=== PATIENT | female | born 1980 | race Caucasian/White ===

== ENCOUNTER 2017-12-26 12:20 | Outpatient (CLI) | payer BC ==
[~2017-12-26] VITALS: Ht 167.6 cm; Wt 87.1 kg
[2017-12-26 12:33] VITALS: BP 124/81
[2017-12-26] MEDS ORDERED: SERT25TA5 PO (12:39)
[2017-12-26 13:14] LABS: BASOPHILS % (AUTO) 0 % (0-10); EOSINOPHILS # (AUTO) 0.1 10^3/uL (0.0-0.3); EOSINOPHILS % (AUTO) 2 % (0-10); HEMATOCRIT 42 % (35-52); HEMOGLOBIN 14.4 G/DL (11.5-16.0); LYMPHOCYTES # (AUTO) 2.3 X 10^3 (1.0-4.0); LYMPHOCYTES % (AUTO) 31 % (12-44); MEAN CORPUSCULAR HEMOGLOBIN 32 PG (25-34); MEAN CORPUSCULAR HGB CONC 34 G/DL (32-36); MEAN CORPUSCULAR VOLUME 94 FL (80-99); MEAN PLATELET VOLUME 10.1 FL (7.4-10.4); MONOCYTES # (AUTO) 0.5 X 10^3 (0.0-1.0); MONOCYTES % (AUTO) 7 % (0-12); NEUTROPHILS # (AUTO) 4.7 X 10^3 (1.8-7.8); NEUTROPHILS % (AUTO) 61 % (42-75); PLATELET COUNT 235 10^3/uL (130-400); RED BLOOD COUNT 4.51 10^6/uL (4.35-5.85); RED CELL DISTRIBUTION WIDTH 13.3 % (10.0-14.5); WHITE BLOOD COUNT 7.7 10^3/uL (4.3-11.0)
== END 2017-12-26 13:00 | disposition home or self-care (01) ==
LOC: PREOP 12:20
PROVIDERS: ATTEND Obstetrics & Gynecology
DX: Z01.812 Encounter for preprocedural laboratory examination (principal); Z11.2 Encounter for screening for other bacterial diseases; N39.3 Stress incontinence (female) (male); N81.4 Uterovaginal prolapse, unspecified; N93.8 Other specified abnormal uterine and vaginal bleeding; D64.9 Anemia, unspecified
CPT/HCPCS: 36415; 85025; 86850; 86900; 86901; 87081

== ENCOUNTER 2018-01-06 10:13 | Inpatient (IN) | payer BC ==
[~2018-01-06] VITALS: Ht 167.6 cm; Wt 87.1 kg
[~2018-01-06 10:13] MED LIST: CIPR-225 PO; DOCU-143 PO; IBUP-1780 PO; OXYC-465 PO; SERT25TA5 PO
[2018-01-06] MEDS ORDERED: HYDROmorphone 2 MG/ML VIAL (DILAUDID) ONE (10:33)
[2018-01-06] MEDS ORDERED: HYDROmorphone 2 MG/ML VIAL (DILAUDID) IV STA ×4 (10:33→13:48)
[2018-01-06] MEDS ORDERED: NS IV 1000 ML 1,000 ML IV ONE (10:33)
[2018-01-06] MEDS ORDERED: NS IV 1000 ML 1,000 ML ONE (10:34)
[2018-01-06] MEDS ORDERED: ONDANSETRON 4 MG/2 ML (SDV) Z0FRAN ONE (10:44)
[2018-01-06 10:55] LABS: BASOPHILS % (AUTO) 0 % (0-10); EOSINOPHILS # (AUTO) 0.1 10^3/uL (0.0-0.3); EOSINOPHILS % (AUTO) 1 % (0-10); HEMATOCRIT 34 % (35-52); HEMOGLOBIN 11.7 G/DL (11.5-16.0); LYMPHOCYTES # (AUTO) 1.8 X 10^3 (1.0-4.0); LYMPHOCYTES % (AUTO) 16 % (12-44); MEAN CORPUSCULAR HEMOGLOBIN 33 PG (25-34); MEAN CORPUSCULAR HGB CONC 34 G/DL (32-36); MEAN CORPUSCULAR VOLUME 95 FL (80-99); MEAN PLATELET VOLUME 9.7 FL (7.4-10.4); MONOCYTES # (AUTO) 0.8 X 10^3 (0.0-1.0); MONOCYTES % (AUTO) 7 % (0-12); NEUTROPHILS # (AUTO) 8.6 X 10^3 (1.8-7.8); NEUTROPHILS % (AUTO) 76 % (42-75); PLATELET COUNT 185 10^3/uL (130-400); RED CELL DISTRIBUTION WIDTH 12.7 % (10.0-14.5); WHITE BLOOD COUNT 11.3 10^3/uL (4.3-11.0)
[2018-01-06] MEDS ORDERED: ONDANSETRON 4 MG/2 ML (SDV) Z0FRAN IVP ONE (11:00)
--- NOTE | 2018-01-06 11:09 | ED Abdominal Pain ---
General Chief Complaint: Rect Problems Stated Complaint: POST OP PAIN/UNABLE TO GO TO RESTROOM Nursing Triage Note: PT REPORTS RECTAL PAIN, ABDOMINAL PRESSURE/PAIN AND CONSTIPATION SINCE HAVING PARTIAL HYST, POSTERIOR/ANTERIOR REPAIR, AND BLADDER SLING Sepsis Screen: No Definite Risk Source of Information: Patient Exam Limitations: No Limitations History of Present Illness Date Seen by Provider: Jan 06, 2018 Time Seen by Provider: 10:53 Initial Comments Here with report of significant rectal pain and pressure. Feels like that she can't have a bowel movement. Had hysterectomy 3 days ago robot-assisted as well as bladder repair. Has not had a significant bowel movement since. States it hurts to even pass gas. States that she has significant amount of pressure rectal now and pain in the abdomen. No dysuria that everything hurts down low. Her pain medicines are not working. Surgery with Dr. Liriano. He is currently out of town in his office requested that she come here for evaluation. Timing/Duration: 2-3 Days Severity/Quality: Moderate, Severe, Aching Location: Suprapubic, Other (rectal) Radiation: RLQ, LLQ Activities at Onset: None Modifying Factors: Worsens With Defecating, Worsens With Movement, Worsens With Urinating Associated Symptoms: Back Pain; No Chest Pain, No Fever/Chills, No Nausea/ Vomiting; Swelling/Mass in Abdomen; No Weakness Allergies and Home Medications Allergies Coded Allergies: No Known Drug Allergies (Unverified , 12/26/17) Home Medications Amoxicillin/Potassium Clav 1 Each Tablet, 875 MG PO BID WITH MEALS Prescribed by: PAM CASTANEDA on 01/07/18 1011 Bisacodyl 10 Mg Supp.rect, 10 MG NV Q12H PRN for Constipation Prescribed by: PAM CASTANEDA on 01/07/18 1011 Ciprofloxacin HCl 500 Mg Tablet, 500 MG PO BID Prescribed by: KYLE HAMMOND on 01/05/18 1933 Docusate Sodium 100 Mg Capsule, 100 MG PO BID Prescribed by: NIKOS HERNANDEZ on 01/03/18 1244 Ibuprofen 800 Mg Tablet, 800 MG PO Q6H PRN for PAIN Prescribed by: NIKOS HERNANDEZ on 01/03/18 1244 Magnesium Hydroxide 400 Mg/5 Ml Oral.susp, 30 ML PO TID PRN for CONSTIPATION- 7TH LINE Prescribed by: PAM CASTAENDA on 01/07/18 1011 Metoclopramide HCl 10 Mg Tablet, 10 MG PO ACHS Prescribed by: PAM CASTANEDA on 01/07/18 1011 Metronidazole 500 Mg Tablet, 500 MG PO TID Prescribed by: PAM CASTANEDA on 01/07/18 1011 Oxycodone HCl/Acetaminophen 1 Each Tablet, 1 TAB PO Q4H PRN for PAIN Prescribed by: NIKOS HERNANDEZ on 01/03/18 1244 Potassium Chloride 20 Meq Tablet.er, 20 MEQ PO DAILY Prescribed by: PAM CASTANEDA on 01/07/18 1018 Sertraline HCl 25 Mg Tablet, 25 MG PO DAILY, (Reported) Patient Home Medication List Home Medication List Reviewed: Yes Review of Systems Review of Systems Constitutional: see HPI; No chills, No fever EENTM: No Symptoms Reported Respiratory: No Symptoms Reported Cardiovascular: No Symptoms Reported Gastrointestinal: Abdominal Pain, Constipated, Nausea; Denies Vomiting Genitourinary: No Symptoms Reported Musculoskeletal: no symptoms reported Skin: no symptoms reported Psychiatric/Neurological: No Symptoms Reported All Other Systems Reviewed Negative Unless Noted: Yes Past Mmrgazg-Rfsnjz-Mswwsh Hx Past Med/Social Hx: Reviewed Nursing Past Med/Soc Hx Patient Social History Alcohol Use: Occasionally Uses Number of Drinks Today: AA Alcohol Beverage of Choice: Beer Recreational Drug Use: No Smoking Status: Current Everyday Smoker Type Used: Cigarettes Recent Foreign Travel: No Contact w/Someone Who Travel: No Recent Infectious Disease Expo: No Recent Hopitalizations: No Physical Abuse: No Sexual Abuse: No Mistreated: No Fear: No Seasonal Allergies Seasonal Allergies: No Past Medical History Surgeries: Yes (RECTAL REPAIR) Appendectomy, Section, Hysterectomy Respiratory: No Cardiac: No Neurological: Yes (hx of seizures when she is extemely tired, last seizure 3-4 years ago) Reproductive Disorders: Yes Female Reproductive Disorders: Endometriosis, Ovarian Cyst Sexually Transmitted Disease: No HIV/AIDS: No Genitourinary: Yes (MARAH) Gastrointestinal: No Musculoskeletal: No Endocrine: No HEENT: No Cancer: No Psychosocial: Yes Depression Nursing Suicide Risk Score: 0 Integumentary: No Blood Disorders: No Family Medical History Reviewed Nursing Family Hx Alcoholism G8 BROTHER Drug abuse G8 BROTHER FH: spina bifida G8 BROTHER Hypertension 19 MOTHER Kidney disease G8 BROTHER Seizure disorder G8 BROTHER Physical Exam Vital Signs Vital Signs - First Documented 01/06/18 10:53 Temp 98.2 Pulse 97 Resp 16 B/P (MAP) 90/71 (77) Pulse Ox 98 Capillary Refill : Less Than 3 Seconds Height/Weight/BMI Height: 5'6.00" Weight: 192lbs. 0.0oz. 87.391885dt; 31.0 BMI Method:Stated General Appearance: WD/WN, no apparent distress HEENT: PERRL/EOMI, pharynx normal Neck: full range of motion, supple Respiratory: lungs clear, normal breath sounds Cardiovascular: no murmur, tachycardia Peripheral Pulses: 2+ Dorsalis Pedis (R), 2+ Left Dors-Pedis (L), 2+ Radial Pulses (R), 2+ Radial Pulses (L) Gastrointestinal: guarding, tenderness, other (abdominal fullness noted with significant tenderness in the lower abdomen and guarding to the lower abdomen. Soft in the upper abdomen) Extremities: non-tender, normal inspection Back: normal inspection, no CVA tenderness, no vertebral tenderness Neurologic/Psychiatric: alert, oriented x 3 Skin: normal color, warm/dry Focused Exam Lactate Level 01/06/18 13:36: Lactic Acid Level 0.73 Lactic Acid Level Laboratory Tests Test 01/06/18 13:36 Lactic Acid Level 0.73 MMOL/L (0.50-2.00) Progress/Results/Core Measures Results/Orders Lab Results Laboratory Tests Test 01/06/18 10:45 01/06/18 13:36 Range/Units White Blood Count 11.3 H 4.3-11.0 10^3/uL Red Blood Count 3.60 L 4.35-5.85 10^6/uL Hemoglobin 11.7 11.5-16.0 G/DL Hematocrit 34 L 35-52 % Mean Corpuscular Volume 95 80-99 FL Mean Corpuscular Hemoglobin 33 25-34 PG Mean Corpuscular Hemoglobin Concent 34 32-36 G/DL Red Cell Distribution Width 12.7 10.0-14.5 % Platelet Count 185 130-400 10^3/uL Mean Platelet Volume 9.7 7.4-10.4 FL Neutrophils (%) (Auto) 76 H 42-75 % Lymphocytes (%) (Auto) 16 12-44 % Monocytes (%) (Auto) 7 0-12 % Eosinophils (%) (Auto) 1 0-10 % Basophils (%) (Auto) 0 0-10 % Neutrophils # (Auto) 8.6 H 1.8-7.8 X 10^3 Lymphocytes # (Auto) 1.8 1.0-4.0 X 10^3 Monocytes # (Auto) 0.8 0.0-1.0 X 10^3 Eosinophils # (Auto) 0.1 0.0-0.3 10^3/uL Basophils # (Auto) 0.0 0.0-0.1 10^3/uL Sodium Level 140 135-145 MMOL/L Potassium Level 3.2 L 3.6-5.0 MMOL/L Chloride Level 108 H 98-107 MMOL/L Carbon Dioxide Level 25 21-32 MMOL/L Anion Gap 7 5-14 MMOL/L Blood Urea Nitrogen 7 7-18 MG/DL Creatinine 0.68 0.60-1.30 MG/DL Estimat Glomerular Filtration Rate > 60 BUN/Creatinine Ratio 10 Glucose Level 94 70-105 MG/DL Calcium Level 9.1 8.5-10.1 MG/DL Corrected Calcium 9.3 8.5-10.1 MG/DL Total Bilirubin 0.6 0.1-1.0 MG/DL Aspartate Amino Transf (AST/SGOT) 22 5-34 U/L Alanine Aminotransferase (ALT/SGPT) 13 0-55 U/L Alkaline Phosphatase 57 40-136 U/L Total Protein 6.7 6.4-8.2 GM/DL Albumin 3.7 3.2-4.5 GM/DL Urine Color YELLOW Urine Clarity CLEAR Urine pH 5 5-9 Urine Specific [place] 1.005 L 1.016-1.022 Urine Protein 2+ H NEGATIVE Urine Glucose (UA) NEGATIVE NEGATIVE Urine Ketones 3+ H NEGATIVE Urine Nitrite NEGATIVE NEGATIVE Urine Bilirubin NEGATIVE NEGATIVE Urine Urobilinogen 1 NORMAL MG/DL Urine Leukocyte Esterase NEGATIVE NEGATIVE Urine RBC (Auto) 1+ H NEGATIVE Urine RBC RARE /HPF Urine WBC NONE /HPF Urine Squamous Epithelial Cells NONE /HPF Urine Crystals NONE /LPF Urine Bacteria NEGATIVE /HPF Urine Casts NONE /LPF Urine Mucus NEGATIVE /LPF Urine Culture Indicated NO Lactic Acid Level 0.73 0.50-2.00 MMOL/L Micro Results Microbiology 01/06/18 Blood Culture - Preliminary, Resulted No growth My Orders Orders - ANALY,ADDIS D MD Hydromorphone Injection (Dilaudid Inject (01/06/18 10:33) Cbc With Automated Diff (01/06/18 10:33) Comprehensive Metabolic Panel (01/06/18 10:33) Saline Lock/Iv-Start (01/06/18 10:33) Ns Iv 1000 Ml (Sodium Chloride 0.9%) (01/06/18 10:33) Hydromorphone Injection (Dilaudid Inject (01/06/18 10:33) Ns Iv 1000 Ml (Sodium Chloride 0.9%) (01/06/18 10:34) Ondansetron Injection (Zofran Injectio (01/06/18 10:44) Ondansetron Injection (Zofran Injectio (01/06/18 11:00) Hydromorphone Injection (Dilaudid Inject (01/06/18 10:50) Ct Abdomen/Pelvis W (01/06/18 11:03) Ketamine Injection (Ketalar Injection) (01/06/18 11:15) Ketamine Injection (Ketalar Injection) (01/06/18 11:15) Iohexol Injection (Omnipaque 350 Mg/Ml 1 (01/06/18 11:15) Ns (Ivpb) (Sodium Chloride 0.9% Ivpb Bag (01/06/18 11:15) Hydromorphone Injection (Dilaudid Inject (01/06/18 11:53) Ketorolac Injection (Toradol Injection) (01/06/18 13:48) Hydromorphone Injection (Dilaudid Inject (01/06/18 13:48) Piperacillin Sodium/Tazobactam (Zosyn Vi (01/06/18 14:00) Medications Given in ED Vital Signs/I&O 01/06/18 10:53 Temp 98.2 Pulse 97 Resp 16 B/P (MAP) 90/71 (77) Pulse Ox 98 Blood Pressure Mean: 77 Progress Progress Note : Progress Note Seen and evaluated. Dilaudid 1 mg IV and Zofran 4 mg IV as well as labs and 1 L normal saline ordered. Pain persistent. Repeat Dilaudid 1 mg IV. This briefly helped the pain but it continues. Considered acute abdominal series but we will go ahead move directly to CT scan given the severity of her symptoms. Ketamine 15 mg IV for pain relief ordered. Monitor patient. 1210: Patient with still a considerable amount of pain. She was unable to urinate so Mas catheter placed. This did ease her pain some. Repeat Dilaudid 1 mg IV has been ordered and will be given if pain persists. Patient to go to CT scan. While in 1342: I did discuss the case with Dr. Castaneda and then Dr. Naranjo and then Dr. Castaneda again. Patient is postop with Dr. Liriano. He is out of town and Dr. Castaneda is covering. Given the CT findings and the persistent pain, patient will require admission. Given that there is concern for possible abscess, blood cultures, lactic acid and urinalysis have been ordered. We will initiate Zosyn 4.5 g IV as well as Flagyl IV. Admit for pain control with Mas catheter in place. All findings and concerns were discussed with the patient and family who agree with plan. Dilaudid 1 mg IV and Toradol 30 mg IV ordered. Zosyn 4.5 g IV ordered. Diagnostic Imaging Diagonstic Imaging: CT Plain Films/CT/US/NM/MRI: abdomen, pelvis Comments [place]IA [place], [place] NAME: [facility]ON[facility]AN [facility] REC#: [id number] PT STATUS: REG ER : 1980 PHYSICIAN: ADDIS BECKFORD MD ADMIT DATE: 01/06/18/ER Draft Date of Exam:01/06/18 CT ABDOMEN/PELVIS W PROCEDURE: CT abdomen and pelvis with contrast. TECHNIQUE: Multiple contiguous axial images were obtained through the abdomen and pelvis after administration of intravenous contrast. DATE: January 06, 2018. COMPARISON: None. INDICATION: 37-year-old female, status post hysterectomy last Saturday. Abdominal and gluteal pain. No urination or bowel movement since last Saturday. FINDINGS: The visualized portions of the lung bases are clear. The heart is not enlarged. There is no identified pericardial effusion. The liver is normal in size and contour. There is no identified liver lesion. The main, right, and left portal veins are patent. The gallbladder is unremarkable. There is no intrahepatic or extrahepatic bile duct dilation. The main pancreatic duct is not abnormally dilated. Unremarkable appearance of the pancreatic parenchyma. The spleen is normal in size. The adrenal glands are unremarkable. There is a low-attenuation right renal lesion on axial image 33 measuring 5 mm in size which is too small to characterize. The urinary collecting systems are not distended. There is no identified renal or ureteral stone. There is a Mas catheter within the urinary bladder which is underdistended. There does appear to be diffuse urinary bladder wall thickening and adjacent inflammatory stranding which potentially could reflect cystitis. There is abnormal wall thickening at the level of the mid sigmoid colon. There is a small amount of free intraperitoneal air at the level of the pelvis. There are sutures in the right lower quadrant. The appendix is not well seen. There are no secondary findings to specifically suggest acute appendicitis. There is a gas-containing fluid collection subjacent to the mid sigmoid colon on axial image 69 measuring approximately 5.7 x 2.9 cm in size. There is additional free pelvic fluid which is not particularly well marginated. There appears to be a duodenal diverticulum at the level of the second portion of duodenum. There is a small fat-containing anterior abdominal wall hernia best illustrated on axial image 43. There are subcentimeter short axis retroperitoneal lymph nodes. There is no identified lymph node within the abdomen or pelvis which specifically meets CT size criteria for adenopathy. There is no identified acute bony abnormality. There is transitional lumbosacral anatomy. If spinal intervention is to be performed in the future, recommend careful correlation with levels. IMPRESSION: CT ABDOMEN AND PELVIS. 1. Gas containing fluid collection at the level of the mid sigmoid colon measuring 5.7 x 2.9 cm in size concerning for developing abscess. Additional small volume free pelvic fluid. 2. Small volume of free intraperitoneal air at the level of the pelvis which potentially could relate to recent surgery on Saturday although perforation of a hollow viscus such as bowel is difficult to exclude. 3. Wall thickening of the urinary bladder with adjacent inflammatory stranding which potentially may reflect cystitis. Recommend correlation with urinalysis. There is a Mas catheter in place. 4. Nonspecific wall thickening of the mid sigmoid colon which may potentially reflect an infectious or inflammatory colitis. Findings called to Dr. Beckford at 1315 hrs. on January 06, 2018. Dictated on workstation # [id number] Dict: 01/06/18 1308 Trans: 01/06/18 1327 [facility] [id number] Interpreted by: KANDICE SANTAMARIA MD Electronically signed by: Departure Communication (Admissions) Time/Spoke to Admitting Phy: 13:42 Impression Primary Impression: Intra-abdominal fluid collection Additional Impression: Postoperative abdominal pain Disposition: ADMITTED INPATIENT Condition: Stable Admissions Decision to Admit Reason: Admit from ER (General) Decision to Admit/Date: Jan 06, 2018 Time/Decision to Admit Time: 13:42 Departure-Patient Inst. Referrals: JENNIFER RIOJAS MD (PCP) Primary Care Physician NIKOS LIRIANO MD (Family) Primary Care Physician Scripts Potassium Chloride (Potassium Chloride) 20 Meq Tablet.er 20 MEQ PO DAILY, #10 TAB Prov: PAM CASTANEDA DO 01/07/18 Metoclopramide HCl (Metoclopramide HCl) 10 Mg Tablet 10 MG PO ACHS, #20 TAB Prov: PAM CASTANEDA DO 01/07/18 Magnesium Hydroxide (Milk of Magnesia) 400 Mg/5 Ml Oral.susp 30 ML PO TID PRN for CONSTIPATION-7TH LINE, #100 ML Prov: PAM CASTANEDA DO 01/07/18 Bisacodyl (Bisac-Evac) 10 Mg Supp.rect 10 MG NV Q12H PRN for Constipation, #10 SUPP.RECT Prov: PAM CASTANEDA DO 01/07/18 Metronidazole (Metronidazole) 500 Mg Tablet 500 MG PO TID, #14 TAB Prov: PAM CASTANEDA DO 01/07/18 Amoxicillin/Potassium Clav (Amox Tr-K Clv 875-125 mg Tab) 1 Each Tablet 875 MG PO BID WITH MEALS, #10 TAB Prov: PAM CASTANEDA DO 01/07/18 ADDIS BECKFORD MD Jan 06, 2018 11:09
[2018-01-06 11:12] LABS: ALANINE AMINOTRANSFERASE 13 U/L (0-55); ALBUMIN 3.7 GM/DL (3.2-4.5); ALKALINE PHOSPHATASE 57 U/L (40-136); BILIRUBIN,TOTAL 0.6 MG/DL (0.1-1.0); BUN/CREATININE RATIO 10; CALCIUM 9.1 MG/DL (8.5-10.1); CARBON DIOXIDE 25 MMOL/L (21-32); CHLORIDE 108 MMOL/L (98-107); CREATININE SERUM 0.68 MG/DL (0.60-1.30); GFR ESTIMATED > 60; GLUCOSE 94 MG/DL (70-105); POTASSIUM 3.2 MMOL/L (3.6-5.0); SODIUM 140 MMOL/L (135-145); TOTAL PROTEIN 6.7 GM/DL (6.4-8.2)
[2018-01-06] MEDS ORDERED: KETAMINE HCL 100 MG/ML 5 ML VIAL IM ONE (11:15)
[2018-01-06] MEDS ORDERED: KETAMINE HCL 100 MG/ML 5 ML VIAL IV ONE (11:15)
[2018-01-06] MEDS ORDERED: NS 100 ML (IVPB) BAG IV ONE (11:15)
[2018-01-06] MEDS ORDERED: IOHEXOL 350 MG/ML 100 ML (OMNIPAQUE 350) VIAL IV ONE (11:15)
--- NOTE | 2018-01-06 13:27 | Diagnostic Imaging Report ---
PROCEDURE: CT abdomen and pelvis with contrast. TECHNIQUE: Multiple contiguous axial images were obtained through the abdomen and pelvis after administration of intravenous contrast. DATE: January 06, 2018. COMPARISON: None. INDICATION: 37-year-old female, status post hysterectomy last Saturday. Abdominal and gluteal pain. No urination or bowel movement since last Saturday. FINDINGS: The visualized portions of the lung bases are clear. The heart is not enlarged. There is no identified pericardial effusion. The liver is normal in size and contour. There is no identified liver lesion. The main, right, and left portal veins are patent. The gallbladder is unremarkable. There is no intrahepatic or extrahepatic bile duct dilation. The main pancreatic duct is not abnormally dilated. Unremarkable appearance of the pancreatic parenchyma. The spleen is normal in size. The adrenal glands are unremarkable. There is a low-attenuation right renal lesion on axial image 33 measuring 5 mm in size which is too small to characterize. The urinary collecting systems are not distended. There is no identified renal or ureteral stone. There is a Mas catheter within the urinary bladder which is underdistended. There does appear to be diffuse urinary bladder wall thickening and adjacent inflammatory stranding which potentially could reflect cystitis. There is abnormal wall thickening at the level of the mid sigmoid colon. There is a small amount of free intraperitoneal air at the level of the pelvis. There are sutures in the right lower quadrant. The appendix is not well seen. There are no secondary findings to specifically suggest acute appendicitis. There is a gas-containing fluid collection subjacent to the mid sigmoid colon on axial image 69 measuring approximately 5.7 x 2.9 cm in size. There is additional free pelvic fluid which is not particularly well marginated. There appears to be a duodenal diverticulum at the level of the second portion of duodenum. There is a small fat-containing anterior abdominal wall hernia best illustrated on axial image 43. There are subcentimeter short axis retroperitoneal lymph nodes. There is no identified lymph node within the abdomen or pelvis which specifically meets CT size criteria for adenopathy. There is no identified acute bony abnormality. There is transitional lumbosacral anatomy. If spinal intervention is to be performed in the future, recommend careful correlation with levels. IMPRESSION: CT ABDOMEN AND PELVIS. 1. Gas containing fluid collection at the level of the mid sigmoid colon measuring 5.7 x 2.9 cm in size concerning for developing abscess. Additional small volume free pelvic fluid. 2. Small volume of free intraperitoneal air at the level of the pelvis which potentially could relate to recent surgery on Saturday although perforation of a hollow viscus such as bowel is difficult to exclude. 3. Wall thickening of the urinary bladder with adjacent inflammatory stranding which potentially may reflect cystitis. Recommend correlation with urinalysis. There is a Mas catheter in place. 4. Nonspecific wall thickening of the mid sigmoid colon which may potentially reflect an infectious or inflammatory colitis. Findings called to Dr. Dickey at 1315 hrs. on January 06, 2018. Dictated by: Dictated on workstation # [id number]
[2018-01-06] MEDS ORDERED: KETOROLAC 30 MG/ML VIAL IVP STA (13:48)
[2018-01-06 14:00] LABS: BILIRUBIN,URINE NEGATIVE (NEGATIVE); CLARITY,URINE CLEAR; COLOR,URINE YELLOW; GLUCOSE, URINE (UA) NEGATIVE (NEGATIVE); KETONES,URINE 3+ (NEGATIVE); LEUKOCYTE ESTERASE ,URINE NEGATIVE (NEGATIVE); NITRITE,URINE NEGATIVE (NEGATIVE); PH,URINE 5 (5-9); PROTEIN,URINE 2+ (NEGATIVE); UROBILINOGEN,URINE 1 MG/DL (NORMAL)
[2018-01-06] MEDS ORDERED: PIPERACILLIN SODIUM/TAZOBACTAM 4.5 GM in D5W 100 ML IVPB 100 ML IV ONE (14:00)
[2018-01-06] MEDS ORDERED: IBUPROFEN 600 MG (MOTRIN) TAB PO SCH (14:00)
[2018-01-06 14:09] LABS: BACTERIA,URINE NEGATIVE /HPF; RBC,URINE RARE /HPF
[2018-01-06 15:18] VITALS: BP 117/81
[2018-01-06] MEDS ORDERED: HYDROmorphone 2 MG/ML VIAL (DILAUDID) IV PRN (15:45)
[2018-01-06] MEDS: metroNIDAZOLE 500MG/100ML IVPB 100 ML IV SCH ×2 (16:02→23:00)
[2018-01-06] MEDS: NS IV 1000 ML 1,000 ML IV SCH (16:02)
[2018-01-06] MEDS: ACETAMINOPHEN 500 MG TAB (TYLENOL) PO PRN (16:10)
[2018-01-06] MEDS ORDERED: CATHETER FLUSH 10 ML SYR IV PRN (16:30)
--- NOTE | 2018-01-06 16:59 | History & Physical-Surgical ---
HPO-Surgical History of Present Illness Chief Complaint: PT REPORTS RECTAL PAIN, ABDOMINAL PRESSURE/PAIN AND CONSTIPATION SINCE HAVING , POSTERIOR/ANTERIOR REPAIR, AND BLADDER SLING Patient had a hysterectomy on Saturday by Dr. Liriano with A/P repair and labialplasty. Also bladder sling. Post operative course managed by Dr. Arreola (he said I did not need to see her during her stay). She was sent home with instructions for straight cath for urinary retention. She states that abdominal pain has increased and not controlled with pain medications at home. She has not had BM nor had much gas passed since surgery. ED did CT which showed a fluid collection and they are concerned about abscess. however, she has no fever nor elevated white count. The fluid colleciton is consistent with postoperative changes (due to irrigation after surgery). She was admitted for pain management. Procedure: ROBOTIC ASSISTED HYSTERECTOMY, BILATERAL SALPINGECTOMY, A/P REPAIR, PV SLING, CYSTO WITH DR. ARREOLA Bilateral labioplasty Weight (Pounds): 192 Weight (Ounces): 0.0 Height (Feet): 5 Height (Inches): 6.00 Allergies and Home Medications Allergies Coded Allergies: No Known Drug Allergies (Unverified , 12/26/17) Home Medications Amoxicillin/Potassium Clav 1 Each Tablet, 875 MG PO BID WITH MEALS Prescribed by: PAM CASTANEDA on 01/07/18 1011 Bisacodyl 10 Mg Supp.rect, 10 MG MI Q12H PRN for Constipation Prescribed by: PAM CASTANEDA on 01/07/18 1011 Ciprofloxacin HCl 500 Mg Tablet, 500 MG PO BID Prescribed by: KYLE HAMMOND on 01/05/18 1933 Docusate Sodium 100 Mg Capsule, 100 MG PO BID Prescribed by: NIKOS HERNANDEZ on 01/03/18 1244 Ibuprofen 800 Mg Tablet, 800 MG PO Q6H PRN for PAIN Prescribed by: NIKOS HERNANDEZ on 01/03/18 1244 Magnesium Hydroxide 400 Mg/5 Ml Oral.susp, 30 ML PO TID PRN for CONSTIPATION- 7TH LINE Prescribed by: PAM CASTANEDA on 01/07/18 1011 Metoclopramide HCl 10 Mg Tablet, 10 MG PO ACHS Prescribed by: PAM CASTANEDA on 01/07/18 1011 Metronidazole 500 Mg Tablet, 500 MG PO TID Prescribed by: PAM CASTANEDA on 01/07/18 1011 Oxycodone HCl/Acetaminophen 1 Each Tablet, 1 TAB PO Q4H PRN for PAIN Prescribed by: NIOKS HERNANDEZ on 01/03/18 1244 Potassium Chloride 20 Meq Tablet.er, 20 MEQ PO DAILY Prescribed by: PAM CASTANEDA on 01/07/18 1018 Sertraline HCl 25 Mg Tablet, 25 MG PO DAILY, (Reported) Patient Home Medication List Home Medication List Reviewed: Yes Past Xkfugit-Msxsea-Vrmyff Hx Patient Social History Alcohol Use: Occasionally Uses Number of Drinks Today: AA Alcohol Beverage of Choice: Beer Recreational Drug Use: No Smoking Status: Current Everyday Smoker Type Used: Cigarettes Recent Foreign Travel: No Contact w/other who traveled: No Recent Hopitalizations: No Recent Infectious Disease Expo: No Seasonal Allergies Seasonal Allergies: No Surgeries Yes (RECTAL REPAIR) Appendectomy, Section, Hysterectomy Respiratory No Cardiovascular No Neurological Yes (hx of seizures when she is extemely tired, last seizure 3-4 years ago) Reproductive System Hx Reproductive Disorders: Yes Sexually Transmitted Disease: No HIV/AIDS: No Female Reproductive Disorders: Endometriosis, Ovarian Cyst Genitourinary Yes (MARAH) Gastrointestinal No Musculoskeletal No Endocrine History of Endocrine Disorders: No HEENT History of HEENT Disorders: No Cancer No Psychosocial History of Psychiatric Problem: Yes Behavioral Health Disorders: Depression Integumentary History of Skin or Integumenta: No Blood Transfusions History of Blood Disorders: No Family Medical History Family Hx: Alcoholism G8 BROTHER Drug abuse G8 BROTHER FH: spina bifida G8 BROTHER Hypertension 19 MOTHER Kidney disease G8 BROTHER Seizure disorder G8 BROTHER Exam Vital Signs Vital Signs 01/06/18 01/06/18 10:53 15:20 Temp 98.2 Pulse 71 Resp 16 B/P (MAP) 117/71 Pulse Ox 98 Capillary Refill : Less Than 3 Seconds Labs Laboratory Tests Test 01/06/18 10:45 01/06/18 13:36 Range/Units White Blood Count 11.3 H 4.3-11.0 10^3/uL Red Blood Count 3.60 L 4.35-5.85 10^6/uL Hemoglobin 11.7 11.5-16.0 G/DL Hematocrit 34 L 35-52 % Mean Corpuscular Volume 95 80-99 FL Mean Corpuscular Hemoglobin 33 25-34 PG Mean Corpuscular Hemoglobin Concent 34 32-36 G/DL Red Cell Distribution Width 12.7 10.0-14.5 % Platelet Count 185 130-400 10^3/uL Mean Platelet Volume 9.7 7.4-10.4 FL Neutrophils (%) (Auto) 76 H 42-75 % Lymphocytes (%) (Auto) 16 12-44 % Monocytes (%) (Auto) 7 0-12 % Eosinophils (%) (Auto) 1 0-10 % Basophils (%) (Auto) 0 0-10 % Neutrophils # (Auto) 8.6 H 1.8-7.8 X 10^3 Lymphocytes # (Auto) 1.8 1.0-4.0 X 10^3 Monocytes # (Auto) 0.8 0.0-1.0 X 10^3 Eosinophils # (Auto) 0.1 0.0-0.3 10^3/uL Basophils # (Auto) 0.0 0.0-0.1 10^3/uL Sodium Level 140 135-145 MMOL/L Potassium Level 3.2 L 3.6-5.0 MMOL/L Chloride Level 108 H 98-107 MMOL/L Carbon Dioxide Level 25 21-32 MMOL/L Anion Gap 7 5-14 MMOL/L Blood Urea Nitrogen 7 7-18 MG/DL Creatinine 0.68 0.60-1.30 MG/DL Estimat Glomerular Filtration Rate > 60 BUN/Creatinine Ratio 10 Glucose Level 94 70-105 MG/DL Calcium Level 9.1 8.5-10.1 MG/DL Corrected Calcium 9.3 8.5-10.1 MG/DL Total Bilirubin 0.6 0.1-1.0 MG/DL Aspartate Amino Transf (AST/SGOT) 22 5-34 U/L Alanine Aminotransferase (ALT/SGPT) 13 0-55 U/L Alkaline Phosphatase 57 40-136 U/L Total Protein 6.7 6.4-8.2 GM/DL Albumin 3.7 3.2-4.5 GM/DL Urine Color YELLOW Urine Clarity CLEAR Urine pH 5 5-9 Urine Specific [place] 1.005 L 1.016-1.022 Urine Protein 2+ H NEGATIVE Urine Glucose (UA) NEGATIVE NEGATIVE Urine Ketones 3+ H NEGATIVE Urine Nitrite NEGATIVE NEGATIVE Urine Bilirubin NEGATIVE NEGATIVE Urine Urobilinogen 1 NORMAL MG/DL Urine Leukocyte Esterase NEGATIVE NEGATIVE Urine RBC (Auto) 1+ H NEGATIVE Urine RBC RARE /HPF Urine WBC NONE /HPF Urine Squamous Epithelial Cells NONE /HPF Urine Crystals NONE /LPF Urine Bacteria NEGATIVE /HPF Urine Casts NONE /LPF Urine Mucus NEGATIVE /LPF Urine Culture Indicated NO Lactic Acid Level 0.73 0.50-2.00 MMOL/L General Appearance: Alert, Oriented X3 Respiratory: Clear to Auscultation, Normal Air Movement Cardiovascular: Regular Rate Abdominal: Other (diminishes bowel sounds. Some distension, not tympanic. Vaginal and Rectovaginal exam reveals tenderness, but no abscess. The labia are healing with some residual burising. She reports ability to void, but no straight cath was done. She may have some residual. ) Assessment/Plan Assessment and Plan 1. postoperative abdominal pain due to constipation and gas, likely1. ileus 2. fluid collection after surgery Plan admit for pain management. IV toradol. Bowel regimen. Ice to perineum. Straight cath prn. Marcella is consulted. Admission Diagnosis Admission Status: Observation PAM CASTANEDA DO Jan 06, 2018 16:59
[2018-01-06 17:06] VITALS: BP 97/59
[2018-01-06] MEDS ORDERED: BISACODYL 10 MG SUPP (DULCOLAX) ONE (17:34)
[2018-01-06] MEDS: BISACODYL 10 MG SUPP (DULCOLAX) PR PRN (17:41)
[2018-01-06] MEDS ORDERED: ONDANSETRON 4 MG/2 ML (SDV) Z0FRAN IVP PRN (19:30)
[2018-01-06] MEDS: DOCUSATE SODIUM 100 MG (COLACE) CAP PO SCH (19:55)
[2018-01-06] MEDS: PIPERACILLIN SODIUM/TAZOBACTAM 4.5 GM in D5W 100 ML IVPB 100 ML IV SCH (19:55)
[2018-01-06] MEDS: KETOROLAC 30 MG/ML VIAL IVP PRN (19:55)
[2018-01-06 20:00] VITALS: BP 117/79
[2018-01-07] VITALS: BP 105/70
[2018-01-07] MEDS: KETOROLAC 30 MG/ML VIAL IVP PRN ×2 (03:14→08:00)
[2018-01-07 03:30] VITALS: BP 119/80
[2018-01-07] MEDS: PIPERACILLIN SODIUM/TAZOBACTAM 4.5 GM in D5W 100 ML IVPB 100 ML IV SCH (04:00)
[2018-01-07 05:04] LABS: BASOPHILS % (AUTO) 0 % (0-10); EOSINOPHILS # (AUTO) 0.1 10^3/uL (0.0-0.3); EOSINOPHILS % (AUTO) 1 % (0-10); HEMATOCRIT 31 % (35-52); HEMOGLOBIN 10.6 G/DL (11.5-16.0); LYMPHOCYTES # (AUTO) 1.2 X 10^3 (1.0-4.0); LYMPHOCYTES % (AUTO) 12 % (12-44); MEAN CORPUSCULAR HEMOGLOBIN 32 PG (25-34); MEAN CORPUSCULAR HGB CONC 34 G/DL (32-36); MEAN CORPUSCULAR VOLUME 95 FL (80-99); MEAN PLATELET VOLUME 10.2 FL (7.4-10.4); MONOCYTES # (AUTO) 0.8 X 10^3 (0.0-1.0); MONOCYTES % (AUTO) 8 % (0-12); NEUTROPHILS # (AUTO) 7.2 X 10^3 (1.8-7.8); NEUTROPHILS % (AUTO) 78 % (42-75); PLATELET COUNT 177 10^3/uL (130-400); RED BLOOD COUNT 3.27 10^6/uL (4.35-5.85); RED CELL DISTRIBUTION WIDTH 12.4 % (10.0-14.5); WHITE BLOOD COUNT 9.3 10^3/uL (4.3-11.0)
[2018-01-07 05:25] LABS: ALANINE AMINOTRANSFERASE 14 U/L (0-55); ALBUMIN 3.4 GM/DL (3.2-4.5); ALKALINE PHOSPHATASE 54 U/L (40-136); BILIRUBIN,TOTAL 0.6 MG/DL (0.1-1.0); BUN/CREATININE RATIO 9; CALCIUM 8.4 MG/DL (8.5-10.1); CARBON DIOXIDE 20 MMOL/L (21-32); CHLORIDE 107 MMOL/L (98-107); CREATININE SERUM 0.67 MG/DL (0.60-1.30); GFR ESTIMATED > 60; GLUCOSE 104 MG/DL (70-105); POTASSIUM 3.1 MMOL/L (3.6-5.0); SODIUM 138 MMOL/L (135-145); TOTAL PROTEIN 6.3 GM/DL (6.4-8.2)
[2018-01-07] MEDS: BISACODYL 10 MG SUPP (DULCOLAX) PR PRN (05:34)
[2018-01-07] MEDS: NS IV 1000 ML 1,000 ML IV SCH (05:43)
[2018-01-07 07:40] VITALS: BP 126/90
[2018-01-07] MEDS: DOCUSATE SODIUM 100 MG (COLACE) CAP PO SCH (07:40)
--- NOTE | 2018-01-07 07:42 | Physician Progress Note ---
Progress Note Assessment/Plan Date Seen by Provider: Jan 07, 2018 Time Seen by Provider: 07:45 Events since last exam rectal suppository placed (glycerine). Has had a few bowel movements. Has passed gas. Feels much better. Plan DC home after Dr. Naranjo has assessed her. Assessment/Plan post operative constipation and possible mild ileus Plan DC home with stool softener and increased fiber and fluid Vitals Last set of Vitals Signs Vital Signs Date Time Temp Pulse Resp B/P (MAP) Pulse Ox O2 Delivery O2 Flow Rate FiO2 01/07/18 03:30 98.1 110 18 119/80 (93) 100 Room Air I&O I&O Intake and Output 01/07/18 00:00 Intake Total 1812 ml Output Total 1075 ml Balance 737 ml Intake Oral 712 ml IV Total 1100 ml Output Urine Total 1075 ml Daily Weight Change No Labs Laboratory Tests 01/06/18 10:45: White Blood Count 11.3H, Red Blood Count 3.60L, Hemoglobin 11.7, Hematocrit 34L , Mean Corpuscular Volume 95, Mean Corpuscular Hemoglobin 33, Mean Corpuscular Hemoglobin Concent 34, Red Cell Distribution Width 12.7, Platelet Count 185, Mean Platelet Volume 9.7, Neutrophils (%) (Auto) 76H, Lymphocytes (%) (Auto) 16 , Monocytes (%) (Auto) 7, Eosinophils (%) (Auto) 1, Basophils (%) (Auto) 0, Neutrophils # (Auto) 8.6H, Lymphocytes # (Auto) 1.8, Monocytes # (Auto) 0.8, Eosinophils # (Auto) 0.1, Basophils # (Auto) 0.0, Sodium Level 140, Potassium Level 3.2L, Chloride Level 108H, Carbon Dioxide Level 25, Anion Gap 7, Blood Urea Nitrogen 7, Creatinine 0.68, Estimat Glomerular Filtration Rate > 60, BUN/ Creatinine Ratio 10, Glucose Level 94, Calcium Level 9.1, Corrected Calcium 9.3 , Total Bilirubin 0.6, Aspartate Amino Transf (AST/SGOT) 22, Alanine Aminotransferase (ALT/SGPT) 13, Alkaline Phosphatase 57, Total Protein 6.7, Albumin 3.7 01/06/18 13:36: Urine Color YELLOW, Urine Clarity CLEAR, Urine pH 5, Urine Specific [place] 1.005L, Urine Protein 2+H, Urine Glucose (UA) NEGATIVE, Urine Ketones 3+H, Urine Nitrite NEGATIVE, Urine Bilirubin NEGATIVE, Urine Urobilinogen 1, Urine Leukocyte Esterase NEGATIVE, Urine RBC (Auto) 1+H, Urine RBC RARE, Urine WBC NONE, Urine Squamous Epithelial Cells NONE, Urine Crystals NONE, Urine Bacteria NEGATIVE, Urine Casts NONE, Urine Mucus NEGATIVE, Urine Culture Indicated NO, Lactic Acid Level 0.73 01/07/18 04:50: White Blood Count 9.3, Red Blood Count 3.27L, Hemoglobin 10.6L, Hematocrit 31L, Mean Corpuscular Volume 95, Mean Corpuscular Hemoglobin 32, Mean Corpuscular Hemoglobin Concent 34, Red Cell Distribution Width 12.4, Platelet Count 177, Mean Platelet Volume 10.2, Neutrophils (%) (Auto) 78H, Lymphocytes (%) (Auto) 12 , Monocytes (%) (Auto) 8, Eosinophils (%) (Auto) 1, Basophils (%) (Auto) 0, Neutrophils # (Auto) 7.2, Lymphocytes # (Auto) 1.2, Monocytes # (Auto) 0.8, Eosinophils # (Auto) 0.1, Basophils # (Auto) 0.0, Sodium Level 138, Potassium Level 3.1L, Chloride Level 107, Carbon Dioxide Level 20L, Anion Gap 11, Blood Urea Nitrogen 6L, Creatinine 0.67, Estimat Glomerular Filtration Rate > 60, BUN/ Creatinine Ratio 9, Glucose Level 104, Calcium Level 8.4L, Corrected Calcium 8.9 , Total Bilirubin 0.6, Aspartate Amino Transf (AST/SGOT) 16, Alanine Aminotransferase (ALT/SGPT) 14, Alkaline Phosphatase 54, Total Protein 6.3L, Albumin 3.4 Focused Exam Lactate Level 01/06/18 13:36: Lactic Acid Level 0.73 Clinical Quality Measures DVT/VTE Risk/Contraindication: Risk Factor Score Per Nursin RFS Level Per Nursing on Admit: 1=Low/No VTE PPX PAM CASTANEDA DO Jan 07, 2018 07:42
[2018-01-07] MEDS ORDERED: LIDOCAINE UROJET 2% GEL 10 ML PKG TOP NR (08:00)
[2018-01-07] MEDS ORDERED: METOCLOPRAMIDE 10 MG (REGLAN) TAB PO SCH (08:00)
[2018-01-07] MEDS ORDERED: BENZOCAINE/MENTHOL (DERMOPLAST) 56 ML CAN TP PRN (08:00)
[2018-01-07] MEDS ORDERED: oxyCODONE/APAP 10/325MG (PERCOCET 10) TABLET PO PRN (08:00)
[2018-01-07] MEDS ORDERED: MILK OF MAGNESIA 400 MG/5 ML 30 ML UDC PO PRN (08:00)
[2018-01-07] MEDS ORDERED: metroNIDAZOLE 500 MG (FLAGYL) TAB PO SCH (09:00)
[2018-01-07] MEDS: ACETAMINOPHEN 500 MG TAB (TYLENOL) PO PRN (09:30)
[2018-01-07] MEDS ORDERED: AMOX1TAB12 PO (10:11)
[2018-01-07] MEDS ORDERED: BISA10SU12 PR (10:11)
[2018-01-07] MEDS ORDERED: MAGN400O7 PO (10:11)
[2018-01-07] MEDS ORDERED: METR500T21 PO (10:11)
[2018-01-07] MEDS ORDERED: METO10TA3 PO (10:11)
--- NOTE | 2018-01-07 10:14 | Discharge Inst-Women's Service ---
Discharge Inst-Women's Serv Depart Medication/Instructions New, Converted or Re-Newed RX: Transmitted to Pharmacy Instructions ice to labia prn straight cath per Dr. Naranjo's orders Final Diagnosis post operative abdominal pain abdominal fluid collection gas pain constipation Consults/Follow Up Additional Follow Up: Yes (per Dr. Naranjo and Heri) Activity Activity: Activity as Tolerated Driving Instructions: No Driving for 1 Week NO SMOKING: NO SMOKING Nothing Inside Vagina: No Douching, No [place], No Tampons Diet Discharge Diet: No Restrictions Symptoms to Report to : Bleeding Excessive, Pain Increased, Fever Over 101 Degrees F, Urination Difficulty, Vaginal Bleeding Increase, Cramps in Feet or Legs, Vaginal Discharge Foul For Any Problems or Questions: Contact Your Physician Skin/Wound Care Infection Signs and Symptoms: Increased Redness, Foul Odor of Wound, Increased Drainage, Skin Itchy or Has a Rash, Increased Swelling, Temperature Above 101 F Stitches/Deandre/Dermabond: Care of Stitches Bathing Instructions: PAM Emerson DO Jan 07, 2018 10:14
[2018-01-07] MEDS ORDERED: POTA-51 PO (10:18)
[2018-01-07] MEDS ORDERED: KCL 20 MEQ TAB (K-DUR) PO SCH (10:30)
--- NOTE | 2018-01-07 11:23 | Progress Note-Urology ---
Progress Note-Urology Progress Notes/Assess & Plan Progress/Assessment & Plan DOING AND FEELING BETTER. VOIDED ON OWN. DRY. HOME ON [facility] Final Diagnosis URINE RETENTION TSERING ARREOLA MD Jan 07, 2018 11:23 am
--- NOTE | 2018-01-07 11:45 | D/C HH Face to Face Order ---
D/C Face to Face Orders Instructions for Patient Patient Instructions/FollowUp: daily visit for pvr cath and also prn Physician to follow Patient: Marcella Discharge Diet for Home: No Restrictions Patient Data-Allergies,Ht & Wt Patient Allergies: Coded Allergies: No Known Drug Allergies (Unverified , 12/26/17) Height (Feet): 5 Height (Inches): 6.00 Weight (Pounds): 192 Weight (Ounces): 0.0 Home Health Need/Face to Face Date of Face to Face: Jan 07, 2018 Clinical Findings: Other-list in note postop urine retention I have seen Pt [id number]: Yes Discharged To: Home Diagnosis/Conditions: MARAH post PVS with postop urine retention Patient is Homebound due to: Pain w/ambulation Homebound Status Due to the above stated illness, injury or surgical procedure (medical condition or diagnosis) and associated clinical findings, the patient is homebound because of his/her inability to leave home except with aid of a supportive device and/or person AND leaving the home requires a considerable and taxing effort or is medically contraindicated. Pt req the following assistanc: Aid of another person Home Health Nursing Orders Home Health Services Order: Nursing Services Home Health Infusion Therapy Line Start Date: Jan 06, 2018 Line Start Time: 1040 Line Type: Saline Lock Site Location: Antecubital Certify Stmt I certify that this patient is under my care and that I, a nurse practitioner or a physician; a administrative assistant data entry working with me, had a face to face encounter that - meets the physician face to face encounter requirements with this patient as dated. TSERING ARREOLA MD Jan 07, 2018 11:44 am
[2018-01-07 12:57] VITALS: BP 112/72
[2018-01-07] MEDS ORDERED: IBUPROFEN 600 MG (MOTRIN) TAB PO SCH (14:00)
[2018-01-07] MEDS ORDERED: AUGMENTIN 875 MG TAB (AMOXICILLIN/CLAVULANATE) PO SCH (17:00)
--- NOTE | 2018-01-09 16:05 | Physician Query-Final Dx ---
CHAIM AGEE 01/09/18 1605: Final Diagnosis Give Final Diagnosis Please give Final Diagnosis PAM CASTANEDA DO 01/22/18 1722: Final Diagnosis Give Final Diagnosis post operative pain, constipation abdominal fluid collection CHAIM AGEE Jan 09, 2018 16:05 PAM CASTANEDA DO Jan 22, 2018 17:22
== END 2018-01-07 13:05 | disposition home health service (06) | DRG 394 ==
LOC: EDUNIT# 10:13 → ER 10:15 → WS 13:50
PROVIDERS: ADMIT Obstetrics & Gynecology; ATTEND Obstetrics & Gynecology
DX: K91.89 Other postprocedural complications and disorders of digestive system (principal); R18.8 Other ascites; K59.00 Constipation, unspecified; G89.18 Other acute postprocedural pain; F32.9 Major depressive disorder, single episode, unspecified; R33.9 Retention of urine, unspecified; G40.909 Epilepsy, unspecified, not intractable, without status epilepticus; F17.210 Nicotine dependence, cigarettes, uncomplicated
CPT/HCPCS: 36415; 51702; 74177; 80053; 81000; 83605; 85025; 87040; 96361; 96365; 96375; 96376

== ENCOUNTER → 2019-04-13 | Outpatient (CLI) | payer BC ==
[~2019-04-13] MED LIST changes: +AMOX1TAB12 PO; +BISA10SU12 PR; +MAGN400O7 PO; +METO10TA3 PO; +METR-145 PO; +POTA-51 PO
--- NOTE | 2019-04-13 18:24 | Diagnostic Imaging Report ---
EXAMINATION: Cervical spine radiographs, 3 views. COMPARISON: None. HISTORY: 38-year-old female, neck pain. History of seizure one week ago. FINDINGS: There is straightening of the normal cervical lordosis. The cervical disc heights appear well preserved. The lateral radiograph images to the level of C7-T1. There is no prominent prevertebral soft tissue swelling. The uncovertebral joints are unremarkable. The lateral masses of C1 are normally positioned relative to C2. There is no identified acute fracture of the cervical spine. IMPRESSION: Unremarkable radiographic evaluation of the cervical spine. Dictated on workstation # [id number]
== END ==
LOC: RAD FS 15:55
PROVIDERS: ATTEND Family Medicine
DX: M54.2 Cervicalgia (principal)
CPT/HCPCS: 72040

== ENCOUNTER → 2021-01-02 | Outpatient (CLI) | payer BC ==
[~2021-01-02] VITALS: Ht 167.7 cm; Wt 86.4 kg
[~2021-01-02] MED LIST changes: +ACETAMINOPHEN 500 MG TAB (TYLENOL) PO PRN; +CASIRIVIMAB/IMDEVIMAB 1,200 MG in NS (IVPB) 250 ML IV ONE; +EPINEPHrine INJECTION 1 MG/ML AMP IM PRN; -METO10TA3 PO; +MTC10T PO; +ONDANSETRON 4 MG/2 ML (SDV) Z0FRAN IV PRN; -OXYC-465 PO; +OXYC-556 PO; +SERT-412 PO; -SERT25TA5 PO; +diphenhydrAMINE 50 MG/ML INJ (BENADRYL) IV PRN
[2021-01-02 12:24] VITALS: BP 133/92
[2021-01-02 13:43] VITALS: BP 121/84
== END ==
LOC: INFUSION 12:11
PROVIDERS: ATTEND Registered Nurse Neonatal Intensive Care
DX: Z23 Encounter for immunization (principal); U07.1 COVID-19

== ENCOUNTER → 2021-10-16 | Outpatient (CLI) | payer BC ==
[~2021-10-16] MED LIST changes: -ACETAMINOPHEN 500 MG TAB (TYLENOL) PO PRN; -CASIRIVIMAB/IMDEVIMAB 1,200 MG in NS (IVPB) 250 ML IV ONE; -EPINEPHrine INJECTION 1 MG/ML AMP IM PRN; -ONDANSETRON 4 MG/2 ML (SDV) Z0FRAN IV PRN; -diphenhydrAMINE 50 MG/ML INJ (BENADRYL) IV PRN
--- NOTE | 2021-10-16 16:27 | Diagnostic Imaging Report ---
PROCEDURE: MRI left upper extremity without contrast, 10/16/2021. TECHNIQUE: Multiplanar, multisequence non contrast-enhanced MRI of the left upper extremity was accomplished. INDICATION: Slipped on ice a few years ago. Injury with continued pain. FINDINGS: The supraspinatus and infraspinatus tendons appear intact. There is mild tendinosis within the subscapularis tendon which is intact. The long head of the biceps tendon lies in the bicipital groove and is intact. The labrum is grossly unremarkable on this noncontrast examination. Muscle volume is preserved. Visualized axilla unremarkable. There is no acute osseous abnormality. Minimal narrowing and spurring noted at the acromioclavicular joint. IMPRESSION: 1. Rotator cuff intact with tendinosis in the subscapularis tendon. 2. Minimal degenerative findings within the acromioclavicular joint. Dictated by: Dictated on workstation # [id number]
== END ==
LOC: RAD 14:45
PROVIDERS: ATTEND Family Medicine
DX: M19.012 Primary osteoarthritis, left shoulder (principal); M67.814 Other specified disorders of tendon, left shoulder
CPT/HCPCS: 73221